=== PATIENT | female | born 1960 | race Caucasian/White ===

== ENCOUNTER → 2021-05-31 | Outpatient (CLI) | payer OTHER ==
[2021-05-31 08:12] LABS: ALANINE AMINOTRANSFERASE 25 U/L (0-55)
[2021-05-31 15:28] LABS: CHOLESTEROL 236 MG/DL (< 200); CREATINE KINASE 160 U/L (29-168); HDL CHOLESTEROL 33 MG/DL (40-60); TRIGLYCERIDES 307 MG/DL (<150); VLDL CHOLESTEROL 61 MG/DL (5-40)
== END ==
LOC: LAB FS 07:15
PROVIDERS: ATTEND Internal Medicine Cardiovascular Disease
DX: E78.49 Other hyperlipidemia (principal)
CPT/HCPCS: 36415; 80061; 82550; 84450; 84460